=== PATIENT | male | born 1960 | race Caucasian/White ===

== ENCOUNTER 2019-02-10 07:34 | Day surgery (SDC) | payer BC ==
[~2019-02-10] VITALS: Ht 162.6 cm; Wt 76.0 kg
[~2019-02-10 07:34] MED LIST: ACETAMINOPHEN 500 MG TABLET PO ONE; ATOR40TA59 PO; BUPIVACAINE-EPI 0.25%-1:200000 MPF 30 ML VIAL. INJ ONE; EPIPEN0.3 MG/0.3 IJ; HYDROmorphone 2 MG/ML VIAL IV PRN; IV RINGERS,LACTATED 1000ML 1,000 ML IV SCH; LIDOCAINE 1% PF 2 ML VIAL. ID PRN; LISI-334 PO; MORPHINE SULFATE 2 MG/ML VIAL. IV PRN; ONDANSETRON PF 4 MG/2 ML VIAL. IV PRN; PROCHLORPERAZINE 10 MG/2 ML VIAL. IV PRN; fentaNYL PF VIAL 100 MCG/2 ML VIAL IV PRN
[2019-02-10] MEDS ORDERED: DEXAMETHASONE SOD PHOS 4 MG/ML VIAL ONE (08:30)
[2019-02-10] MEDS ORDERED: LIDOCAINE 2% PF 5 ML VIAL. ONE (08:30)
[2019-02-10] MEDS ORDERED: ONDANSETRON PF 4 MG/2 ML VIAL. ONE (08:30)
[2019-02-10] MEDS ORDERED: fentaNYL PF VIAL 250 MCG/5 ML VIAL ONE (08:30)
[2019-02-10] MEDS ORDERED: ROCURONIUM 50 MG/5 ML VIAL. ONE (08:30)
[2019-02-10] MEDS ORDERED: PROPOFOL 20 ML IV ONE (08:30)
[2019-02-10] MEDS ORDERED: MIDAZOLAM HCL/PF 2 MG/2 ML VIAL. ONE (08:32)
[2019-02-10] MEDS ORDERED: PHENYLEPHRINE in 0.9% NACL PF 1 MG/10 ML SYRINGE. IV ONE (09:18)
[2019-02-10] MEDS ORDERED: NEOSTIGMINE METHYLSULFATE 5 MG/5 ML SYRINGE. ONE (10:15)
[2019-02-10] MEDS ORDERED: SEVOFLURANE 61 TO 120 MINUTES. IH ONE (10:15)
[2019-02-10] MEDS ORDERED: GLYCOPYRROLATE 1 MG/5 ML VIAL. ONE (10:15)
--- NOTE | 2019-02-10 10:22 | PDOC4 ---
Operative Note Operative Note Date: 02/10/2019 Preoperative diagnosis: Recurrent right inguinal hernia and umbilical hernia Postoperative diagnosis: Same Procedure: Robotic-assisted laparoscopic right inguinal hernia repair with mesh and umbilical hernia repair Surgeon: Edu Specimen: None Dictation: Patient is 58-year-old male is complained of right groin pain previously had a hernia repair. Procedure of robotic-assisted laparoscopic right inguinal hernia repair with mesh was explained to the patient in detail as also noted to have a small umbilical hernia this was also discussed with the patient in detail risks benefits were also discussed including bleeding infection injury to intra-abdominal contents possibly necessitating further or open operations alternatives to this procedure also discussed with the patient is seemed to understand and gave both verbal and written consent to have the procedure performed. Patient was taken to the operating room placed in supine position general anesthesia was initiated once patient was asleep and intubated is placed in low lithotomy positioning and his abdomen was prepped and draped usual sterile fashion using ChloraPrep. An area just above the umbilicus was injected with quarter percent Marcaine with epinephrine incision was made with 11 blade scalpel varies needle was placed within the abdomen creating pneumoperitoneum once this complete a 8mm da Lesley port was placed in the da Lesley camera was placed within the abdomen and inspected no other abdomen maladies were noted other than a small right inguinal hernia 8mm da Lesley port was placed in the right mid abdomen and one in the left mid abdomen dementia robot was brought in and docked all port sites surgeon went to the robotic console using grasper and Endo Danika scissors the peritoneum over the right side was incised and a peroneal flap was propagated inferiorly reducing the hernia and its contents a large Bard mesh 3-D max for right side was then placed over the defect and the peritoneum was closed over the mesh. Once this complete surgeon went to patient's bedside the robot was undocked all ports removed the fascial defect and the umbilical hernia were closed with a [id number] 0 Vicryl suture and skin was her approximate all port sites for septic and a Monocryl Mastisol Steri-Strips and island dressings were applied. Patient was awakened and bated operating room taken to recovery in stable condition all sponge instrument needle counts listed as correct estimated blood loss 5 mL STEPHANIE IRELAND MD Feb 10, 2019 10:22
--- NOTE | 2019-02-10 10:24 | DISCH ---
DISCHARGE INSTRUCTIONS Condition on Discharge Condition on Discharge: Stable Activity After Discharge Activity Instructions for Disc: Avoid exertion Other activity instructions: no lifting more than 20 pounds for 2 weeks Diet after Discharge Diet after Discharge: Regular Wound Incision Care Other wound/incision instructi: a shower in 24 hours Contacting the DRGreg after DC Call your doctor for: If your condition worsens Follow-Up Follow up with: Dr. Ireland in 2 weeks STEPHANIE IRELAND MD Feb 10, 2019 10:24
[2019-02-10] MEDS ORDERED: fentaNYL PF VIAL 100 MCG/2 ML VIAL ONE (11:05)
[2019-02-10] MEDS: fentaNYL PF VIAL 100 MCG/2 ML VIAL IV PRN ×2 (11:08→11:16)
[2019-02-10 11:25] VITALS: BP 127/75
[2019-02-10] MEDS ORDERED: GABAPENTIN 300 MG CAPSULE. PO SCH (11:30)
[2019-02-10] MEDS ORDERED: CELECOXIB 100 MG CAPSULE. PO SCH (11:30)
[2019-02-10] MEDS ORDERED: CELE200C PO (11:36)
[2019-02-10] MEDS ORDERED: GABA300C18 PO (11:36)
== END 2019-02-10 12:11 | disposition home or self-care (01) ==
LOC: SURG 07:34
PROVIDERS: ATTEND Surgery
DX: K40.91 Unilateral inguinal hernia, without obstruction or gangrene, recurrent (principal); K42.9 Umbilical hernia without obstruction or gangrene; I10 Essential (primary) hypertension; E78.00 Pure hypercholesterolemia, unspecified; G47.30 Sleep apnea, unspecified; Z98.890 Other specified postprocedural states; Z87.39 Personal history of other diseases of the musculoskeletal system and connective tissue; Z72.89 Other problems related to lifestyle; Z85.46 Personal history of malignant neoplasm of prostate
CPT/HCPCS: 49585; 49651; A7015; C1781; J0690; J1100; J2001; J2250; J2370; J2405; J2704; J2710; J3010; J3490; J7120; S2900